=== PATIENT | male | born 1940 | race Caucasian/White ===

== ENCOUNTER 2016-06-09 22:36 | Observation (INO) | payer OTHER ==
[2016-06-09] MEDS ORDERED: NS 1,000 ML IV ONE (22:43)
--- NOTE | 2016-06-09 22:47 | EDPHY ---
H & P HPI/ROS: HPI CHIEF COMPLAINT: "I am feeling woozy, trouble with my right hand, trouble speech" HISTORY OF PRESENT ILLNESS: This patient very pleasant 68-year-old male, significant past medical history for hypertension, hyperlipidemia remote history of AFib not on any anticoagulation, presents emergency room by EMS after call 911 feeling woozy. Patient tells me that he sees as computer watching a you to video and noticed that he was unable to control his right hand very well was having trouble with the mouse. He then states that when he was trying to speak on the phone with 911 he had trouble getting his thoughts getting his words out. This happened approximately an hour ago it all resolved since then. Upon arrival here to the emergency room he has no complaints. Denies chest pain headache numbness or tingling focal weakness. Denies trouble with speech or trouble moving his right hand. The symptoms resolved on its own. Did take full-dose aspirin prior to arrival. No history of TA CVA or PR. Patient's NIH stroke scale time arrival to the emergency room is 0. Symptoms resolved prior to arrival. Past Medical History: Hypertension, hyperlipidemia, AFib, BPH, "saliva problems' Past Surgical History: No recent surgical history Social History: Denies daily use of drugs alcohol tobacco products lives independently alone in apartment. Family History: Noncontributory ROS REVIEW OF SYSTEMS: A comprehensive 10 point review of systems is otherwise negative aside from elements mentioned in the history of present illness. Exam Constitutional appears well nontoxic, triage nursing summary reviewed, vital signs reviewed, awake/alert. Eyes normal conjunctivae and sclera, EOMI, PERRLA. HENT normal inspection, atraumatic, moist mucus membranes, no epistaxis, neck supple/ no meningismus, no raccoon eyes. Respiratory clear to auscultation bilaterally, normal breath sounds, no respiratory distress, no wheezing. Cardiovascular rate normal, regular rhythm, no murmur, no edema, distal pulses normal. Gastrointestinal soft, non-tender, no rebound, no guarding, normal bowel sounds, no distension, no pulsatile mass. Genitourinary no CVA tenderness. Musculoskeletal no midline vertebral tenderness, full range of motion, no calf swelling, no tenderness of extremities, no meningismus, good pulses, neurovascularly intact. Skin pink, warm, & dry, no rash, skin atraumatic. Neurologic normal neurological exam. awake, alert and oriented x 3, AAOx3, moves all 4 extremities equally, motor intact, sensory intact, CN II-XII intact , normal cerebellar, normal vision, normal speech. Psychiatric normal mood/affect. Heme/Lymph/Immune no lymphadenopathy. Differential Diagnosis: Includes but is not limited to in a particular order TIA versus CVA hypertensive urgency, electrolyte disturbance, cardiac arrhythmia , ACS Medical Decision Making: plan for the patient CT head without contrast rule out acute bleed versus stroke. Check blood work including electrolytes, full classroom monitor. EKG troponin. Gentle IV hydration. Re-evaluation. Given patient's constellation of symptoms, age, risk factors patient be admitted to the hospital for TIA CVA rule out. Re-evaluation: EKG interpretation by me on record in [employer] system. Impression time of EKG 04/13/1945 sinus rhythm rate of 55, ID interval noted 220. 1st degree AV block. I do not appreciate acute ST elevation PR or ST depression. Normal T- waves. Normal intervals except for ID. Left axis deviation present. Unremarkable nonischemic EKG. CT scan of the head without IV contrast The results of the study are negative for bleed or stroke. The study was read by Dr. García. I viewed the images myself on the PACS system. Of note I was notified by Dr. García that patient's right sphenoid sinus is occluded, questionable sinus disease versus mass. Recommend direct look up his nose. ED x-ray chest one view: negative for acute cardiopulmonary disease. Image interpreted by myself. 2350: patient be admitted to the medicine service for TIA. Spoke with Dr. Zeng. Agrees to admit. Patient this time neurovascularly intact. No focal neuro deficit. At baseline. Source: Patient - Medical/Surgical History Hx Asthma: No Hx Chronic Respiratory Disease: No Hx Diabetes: No Hx Cardiac Disease: Yes Hx Renal Disease: No Hx Cirrhosis: No Hx Alcoholism: No Hx HIV/AIDS: No Hx Splenectomy or Spleen Trauma: No Other PMH: Medical HTN, high cholesterol, BPH, afib. surgery melanoma, ;l fibula fx - Social History Smoking Status: Never smoked Constitutional: Initial Vital Signs Temperature (C) 37.1 C 06/09/16 22:43 Heart Rate 61 06/09/16 22:43 Respiratory Rate 17 04/18/17 22:43 Blood Pressure 200/90 H 06/09/16 22:43 O2 Sat (%) 91 L 06/09/16 22:43 O2 Delivery Mode Room Air Allergies/Adverse Reactions: No Known Allergies Allergy (Verified 03/29/14 11:31) Home Medications: Medication Instructions Recorded ATENOLOL [Atenolol 50 mg] 100 mg PO DAILY 07/21/10 Aspirin [Aspirin 81mg] 325 mg PO DAILY 07/21/10 Carbidopa/Levo Cr 25/100Mg 0 tab PO BID 07/21/10 [Sinemet Cr] Ibuprofen [Motrin (*)] 600 mg PO Q6PRN PRN #20 tab 07/21/10 Losartan/Hydrochlorothiazide 1 each PO 07/21/10 [Losartan-Hctz 100-12.5 Mg Tab] Multivitamins W-Minerals/Lut 1 each PO 07/21/10 [Centrum Silver Tablet] Prilosec 07/21/10 SIMVASTATIN [Zocor] 40 mg PO 07/21/10 Tamsulosin HCl [Flomax] 0.4 mg PO DAILY8 07/21/10 traZODone [traZODONE 50MG (*)] 25 mg PO 07/21/10 Hydrochlorothiazide [HCTZ (RX)] 03/29/14 Zaleplon [Sonata] 5 mg PO DAILY PRN 03/29/14 Medical Decision Making - Diagnostics Imaging Results: Imaging Impressions Chest X-Ray 06/09/16 22:43 Impression: Suspect low-grade congestive heart failure without pulmonary edema. - Data Points Laboratory Results: Laboratory Results 06/09/16 22:52 06/09/16 22:52 06/09/16 06/09/16 06/09/16 22:52 22:52 22:52 WBC 6.74 10^3/uL 10^3/uL (3.80-9.50) RBC 4.34 10^6/uL L 10^6/uL (4.40-6.38) Hgb 14.7 g/dL g/dL (13.7-17.5) Hct 41.9 % % (40.0-51.0) MCV 96.5 fL fL (81.5-99.8) MCH 33.9 pg pg (27.9-34.1) MCHC 35.1 g/dL g/dL (32.4-36.7) RDW 13.1 % % (11.5-15.2) Plt Count 215 10^3/uL 10^3/uL (150-400) MPV 10.0 fL fL (8.7-11.7) Neut % (Auto) 54.3 % % (39.3-74.2) Lymph % (Auto) 29.2 % % (15.0-45.0) Stoddard % (Auto) 11.9 % % (4.5-13.0) Eos % (Auto) 3.6 % % (0.6-7.6) Baso % (Auto) 0.4 % % (0.3-1.7) Nucleat RBC Rel Count 0.0 % % (0.0-0.2) Absolute Neuts (auto) 3.66 10^3/uL 10^3/uL (1.70-6.50) Absolute Lymphs (auto) 1.97 10^3/uL 10^3/uL (1.00-3.00) Absolute Monos (auto) 0.80 10^3/uL 10^3/uL (0.30-0.80) Absolute Eos (auto) 0.24 10^3/uL 10^3/uL (0.03-0.40) Absolute Basos (auto) 0.03 10^3/uL 10^3/uL (0.02-0.10) Absolute Nucleated RBC 0.00 10^3/uL 10^3/uL (0-0.01) Immature Gran % 0.6 % % (0.0-1.1) Immature Gran # 0.04 10^3/uL 10^3/uL (0.00-0.10) PT 14.4 SEC SEC (12.0-15.0) INR 1.13 (0.83-1.16) APTT 27.4 SEC SEC (23.0-38.0) Sodium 137 mEq/L mEq/L (134-144) Potassium 3.4 mEq/L L mEq/L (3.5-5.2) Chloride 100 mEq/L mEq/L (97-110) Carbon Dioxide 25 mEq/l mEq/l (22-31) Anion Gap 12 mEq/L mEq/L (8-16) BUN 15 mg/dL mg/dL (7-23) Creatinine 1.2 mg/dL mg/dL (0.7-1.3) Estimated GFR 59 Glucose 125 mg/dL H mg/dL (70-100) Calcium 9.1 mg/dL mg/dL (8.5-10.4) Magnesium 1.9 mg/dL mg/dL (1.6-2.3) Total Bilirubin 0.6 mg/dL mg/dL (0.1-1.4) Conjugated Bilirubin 0.4 mg/dL mg/dL (0.0-0.5) Unconjugated Bilirubin 0.2 mg/dL mg/dL (0.0-1.1) AST 32 IU/L IU/L (17-59) ALT 34 IU/L IU/L (21-72) Alkaline Phosphatase 53 IU/L IU/L (38-126) Creatine Kinase 161 IU/L IU/L (0-224) CK-MB (CK-2) Fraction Pending Troponin I < 0.012 ng/mL ng/mL (0-0.034) NT-Pro-B Natriuret Pep 489 pg/mL H pg/mL (0-450) Total Protein 8.1 g/dL g/dL (6.3-8.2) Albumin 4.5 g/dL g/dL (3.5-5.0) Lipase 172.0 IU/L IU/L (23-300) Medications Given: Discontinued Medications Sodium Chloride (Ns) 1,000 mls @ 0 mls/hr IV ONCE ONE PRN Reason: Wide Open Stop: 06/09/16 22:44 Last Admin: 06/09/16 22:46 Dose: 1,000 mls Departure - Departure Disposition: [facility] Inpatient Acute Clinical Impression: TIA (transient ischemic attack) Qualifiers: Transient cerebral ischemia type: unspecified Qualified Code(s): G45.9 - Transient cerebral ischemic attack, unspecified Condition: Good Referrals: Patient,NotPresent [Unknown] - As per Instructions
--- NOTE | 2016-06-09 22:49 | CPEKG ---
Heart Rate: 55 RR Interval: 1091 P-R Interval: 220 QRSD Interval: 88 QT Interval: 420 QTC Interval: 402 P Peotone: 45 QRS Peotone: -30 T Wave Peotone: 73 EKG Severity - ABNORMAL ECG - EKG Impression: SINUS RHYTHM EKG Impression: FIRST DEGREE AV BLOCK EKG Impression: LEFT AXIS DEVIATION Electronically Signed By: Shelton Tuttle 10-Jun-2016 23:50:12
[2016-06-09 23:01] LABS: % IMMATURE GRANULYOCYTES 0.6 % (0.0-1.1); ABSOLUTE IMMATURE GRANULOCYTES 0.04 10^3/uL (0.00-0.10); ADD DIFF? NO; ADD MORPH? NO; ADD SCAN? NO; ATYPICAL LYMPHOCYTE FLAG 0 (0-99); FRAGMENT RBC FLAG 0 (0-99); HEMATOCRIT 41.9 % (40.0-51.0); HEMOGLOBIN 14.7 g/dL (13.7-17.5); LEFT SHIFT FLG 0 (0-99); LIPEMIA HEMOLYSIS FLAG 90 (0-99); MEAN CELL HEMOGLOBIN 33.9 pg (27.9-34.1); MEAN CELL HEMOGLOBIN CONCENTR. 35.1 g/dL (32.4-36.7); MEAN CELL VOLUME 96.5 fL (81.5-99.8); PLATELET CLUMPS FLAG 10 (0-99); PLATELET COUNT 215 10^3/uL (150-400); RED BLOOD CELL COUNT 4.34 10^6/uL (4.40-6.38); RED CELL DISTRIBUTION WIDTH 13.1 % (11.5-15.2)
[2016-06-09 23:11] LABS: INR 1.13 (0.83-1.16); PROTIME(PATIENT) 14.4 SEC (12.0-15.0)
[2016-06-09 23:12] LABS: APTT 27.4 SEC (23.0-38.0)
[2016-06-09 23:16] LABS: ALANINE AMINOTRANSFERASE 34 IU/L (21-72); ALBUMIN 4.5 g/dL (3.5-5.0); ALKALINE PHOSPHATASE 53 IU/L (38-126); ANION GAP 12 mEq/L (8-16); ASPARTATE AMINOTRANSFERASE 32 IU/L (17-59); BILIRUBIN,TOTAL 0.6 mg/dL (0.1-1.4); BILIRUBIN-CONJUGATED 0.4 mg/dL (0.0-0.5); BILIRUBIN-UNCONJUGATED 0.2 mg/dL (0.0-1.1); CALCIUM 9.1 mg/dL (8.5-10.4); CARBON DIOXIDE 25 mEq/l (22-31); CHLORIDE 100 mEq/L (97-110); CREATININE 1.2 mg/dL (0.7-1.3); GLOMERULAR FILTRATION RATE 59; GLUCOSE 125 mg/dL (70-100); MAGNESIUM 1.9 mg/dL (1.6-2.3); POTASSIUM 3.4 mEq/L (3.5-5.2); SODIUM 137 mEq/L (134-144); TOTAL PROTEIN 8.1 g/dL (6.3-8.2)
[2016-06-09 23:26] LABS: TROPONIN I < 0.012 ng/mL (0-0.034)
[2016-06-09 23:35] LABS: CREATINE KINASE-MB FRACTION 3.17 ng/mL (0-3.19)
[2016-06-10] MEDS ORDERED: PROTOCOL POTASSIUM 1 DOSE MISC PRN (01:31)
[2016-06-10] MEDS ORDERED: ACETAMINOPHEN 325 MG TAB PO PRN (01:35)
[2016-06-10] MEDS ORDERED: ONDANSETRON 4 MG/2 ML VIAL IVP PRN (01:35)
[2016-06-10 01:54] LABS: COLOR YELLOW; LEUKOCYTE ESTERASE,URINE NEGATIVE (NEGATIVE); NITRITE,URINE NEGATIVE (NEGATIVE)
--- NOTE | 2016-06-10 03:07 | GHP ---
[f rep st] HISTORY AND PHYSICAL DATE OF ADMISSION: 06/09/2016 CHIEF COMPLAINT: Transient right hand weakness and aphasia. HISTORY: The patient is a 76-year-old male who was at home watching [employer] video tonight when nalini denly, he realized he could not control his right hand. He called 9-1-1 but when the blow molding machine operator answe red, he was unable to speak and tell them his address. No words would come out and he was near comp letely aphasic. Eventually, this did improve and he was able to give them his address, and he came to the emergency room. The whole episode lasted 1 hour, and now he feels he is back to baseline. Husam waterman has otherwise been feeling well recently without any complaints. He has some very mild sinus josr estion. PAST MEDICAL HISTORY: 1. Hypertension. 2. Hyperlipidemia. 3. Melanoma on the right side of the face, status post surgical resection 4 years ago. 4. SVT. MEDICATIONS: Please see computer record for full detailed list. ALLERGIES: No known drug allergies. SOCIAL HISTORY: No smoking. Occasional wine. He lives alone. REVIEW OF SYSTEMS: Complete review of systems obtained. Review of systems is negative regarding co nstitutional, HEENT, GI, pulmonary, cardiovascular, , hematology, skin, muscular, endocrine, psych , except for positives and negatives as in HPI. FAMILY HISTORY: Reviewed and noncontributory to his main complaint. PHYSICAL EXAMINATION: GENERAL: Well-developed, well-nourished male, in no acute distress. VITAL S IGNS: Temperature is 36.7, pulse 68, blood pressure 179/77, saturating 92% on room air. EYE: Norm al conjunctivae, pupils equal, round, react to light. ENT: Normal ears, nose. Hearing intact. No rmal teeth. Oropharynx moist. NECK: Trachea midline. No thyromegaly. CHEST: Normal effort. KERRY NGS: Clear to auscultation bilaterally. CARDIOVASCULAR: Regular rate and rhythm. No murmur. No lower extremity edema. ABDOMEN: Soft, nontender. No hepatosplenomegaly. SKIN: Warm, dry, intact . No rash. MUSCULOSKELETAL: No cyanosis or clubbing. Strength 5/5, upper and lower extremities. NEURO: Cranial nerves intact. Normal sensation to light touch. PSYCH: Alert and oriented x3. N ormal affect. Normal judgment and insight. Normal memory. LABORATORY DATA: White count 6.74, hematocrit 41.9, platelets 215. Sodium 137, potassium 3.4, chlo ride 100, bicarb 25, BUN 15, creatinine 1.2, glucose 125. LFTs are negative. Troponins negative. EKG viewed by me, my personal interpretation is normal sinus rhythm, no ST-T wave changes. Chest x- ray is negative. Head CT is negative except for right maxillary sinus opacification. ASSESSMENT/PLAN: 1. Transient ischemic attack. We will check an MRI of his brain, a CT angiogram of the head and ne ck, and an echocardiogram. We will continue his daily aspirin and check a lipid panel. We will conchita ch him on telemetry for evidence of atrial fibrillation. We will consult Neurology to see him in th e morning. 2. Hypertension. Very elevated on presentation, although it is coming down. I do not think we nee d to follow strict permissive hypertension guidelines given the fact, clinically, this is a TIA. If he continues with extreme blood pressure elevation, we will treat it more urgently. Need to clarif y his home medication regimen. 3. Hyperlipidemia. We will recheck lipids in the morning and with this TIA event, his goal LDL is less than 70. 4. Right maxillary sinus opacification. By report, there was a question of a possible mass. This will be further evaluated on MRI of the brain. He may need outpatient ENT consultation. His sympto ms are minimal. CODE STATUS: Full. ADMISSION STATUS: We will admit to observation. Anticipate discharge tomorrow if workup is unremar kable. DVT PROPHYLAXIS: He is high risk. We will place him on subcu Lovenox. /[id number]/MODL
[2016-06-10 05:08] LABS: ANION GAP 10 mEq/L (8-16); CALCIUM 8.6 mg/dL (8.5-10.4); CARBON DIOXIDE 24 mEq/l (22-31); CHLORIDE 105 mEq/L (97-110); CHOLESTEROL 115 mg/dL (140-220); CHOLESTEROL/HDL RATIO 3.48 RATIO (1.00-4.97); GLOMERULAR FILTRATION RATE > 60; GLUCOSE 99 mg/dL (70-100); HIGH DENSITY LIPOPROTEIN 33 mg/dL (40-65); LDL/HDL RATIO 1.33 RATIO (1.00-3.64); LOW DENSITY LIPOPROTEIN 44 mg/dL (80-100); NON-HIGH DENSITY LIPOPROTEIN 82 mg/dL (90-129); POTASSIUM 4.1 mEq/L (3.5-5.2); SODIUM 139 mEq/L (134-144); TRIGLYCERIDE 193 mg/dL (40-150); VERY LOW DENSITY LIPOPROTEINS 38 mg/dL (8-25)
[2016-06-10 07:40] VITALS: TEMP 97.9
[2016-06-10] MEDS: ENOXAPARIN 40 MG/0.4 ML SYR SC SCH ×2 (08:14→10:09)
[2016-06-10] MEDS ORDERED: ASPIRIN EC 325 MG TAB PO SCH (09:00)
[2016-06-10] MEDS ORDERED: IOPAMIDOL (ISOVUE 370) 100 ML BTL IV ONE (09:23)
--- NOTE | 2016-06-10 10:35 | HOSPPROG ---
Hospitalist Progress Note Assessment/Plan: patient is a 76-year-old male who was watching a video when he suddenly realized he could not control his right hand. He called 911 but then was unable to speak in [place] address. He was completely aphasic. This improved [facility]. Today is my 1st encounter with patient. Chart reviewed. * Acute stroke reviewed his findings with the radiologist of the MRI this showed an acute lacunar infarct involving left occipital and left parietal cortex no hemorrhages noted CT angiogram of neck shows moderate calcified plaque to right carotid bulb 60-65% started on aspirin therapy/likely be started on Plavix patient has been declining tele monitoring today, but I reviewed earlier reports, sinus with infreq PVC's, no afib seen awaiting PT, OT, ST to see neurology needs to see * hypertension blood pressure was very elevated on admission will allow for permissive hypertension in the setting of a stroke * hyperlipidemia on statin * elevated triglycerides sees Dr Pedraza in OP setting/ needs further treatment * right maxillary sinus opacification MRI notes sinusitis will have him follow up with ENT in the outpatient setting *Plan: multiple disciplinarians need to see/ will discuss w Dr Hendrix about imaging studies/ need to further evaluate echocardiogram in addition Subjective: Antwan is anxious to leave today/wants to go home. Objective: Vital Signs Temp Pulse Resp BP Pulse Ox 36.6 C 60 14 175/82 H 98 06/10/16 07:39 06/10/16 07:39 06/10/16 07:39 06/10/16 07:39 06/10/16 07:39 Laboratory Results 06/10/16 04:45 06/09/16 06/10/16 06/11/16 05:59 05:59 05:59 Intake Total 1300 Output Total 300 Balance 1000 PT 14.4 SEC (12.0-15.0) 06/09/16 22:52 INR 1.13 (0.83-1.16) 06/09/16 22:52 - Physical Exam Constitutional: no apparent distress, appears nourished, not in pain Eyes: PERRL, EOMI Ears, Nose, Mouth, Throat: hearing normal Cardiovascular: regular rate and rhythym Respiratory: no respiratory distress Gastrointestinal: normoactive bowel sounds Skin: warm, normal color Neurologic: AAOx3, CN II-XII Intact, No weakness, No pronator drift, No facial droop Psychiatric: interacting appropriately, not anxious, other (impulsive) ICD10 Worksheet Patient Problems: Problems Problem Status Onset TIA (transient ischemic attack) Acute
[2016-06-10 12:02] VITALS: BP 173/102; PULSE 57; RESP 16; O2SAT 94
--- NOTE | 2016-06-10 13:11 | ECHO ---
[id number] + + [address] : : [place] [id number] : : [phone] + + Adult Echocardiographic Report + + :Name: MARY WILDER LStudy Date: 06/10/2016 08:07 AM : : Hospital Admission Number: [id number] Loc ation: 357: :: 1940 Gender: Male Height: 70 in : :Age: 76 yrs Race: WH Weight: 185 lb : :Reason For Study: Eval LV Fx : : BSA: 2.0 me ters2 : :History: TIA : + + MMode/2D Measurements \T\ Calculations IVSd: 0.97 cm LVIDd: 5.3 cm FS: 34.1 % Ao root diam: 3.6 cm LVPWd: 0.92 cm LVIDs: 3.5 cm EDV(Teich): 136.6 ml ACS: 1.7 cm ESV(Teich): 51.1 ml EF(Teich): 62.6 % LVOT diam: 2.1 cm LVOT area: 3.5 cm2 Normal Measurement Values: + + :LVIDd (3.5-5.7cm) IVSd (0.6-1.1cm) LVPWd (0.6-1.1cm) Aortic Root (2.0-3.7cm)Left Atrium (1.5-4.0cm): :LV Vol(d) (76-115ml) LV Vol(s) (29-48ml) Ejec Fraction (50-65%)PV Bobby (0.6- 1.2m/s) TV Bobby (0.4-1.0m/s) : :MV E Bobby (0.8-1.0m/s)MV A Bobby (0.3-1.0m/s)LVOT Bobby (0.7-1.2m/s) Asc Ao Bobby ( 0.9-1.8m/s) : + + Doppler Measurements \T\ Calculations MV E max bobby: Ao V2 max: AI max bobby: LV V1 max: 87.9 cm/sec 187.3 cm/sec 385.9 cm/sec 90.8 cm/sec MV A max bobby: Ao max PG: AI max P.6 mmHgLV V1 max P.9 cm/sec 14.0 mmHg AI dec slope: 3.3 mmHg MV E/A: 1.8 Ao mean PG: LV V1 mean P.4 mmHg 191.2 cm/sec2 1.8 mmHg Ao V2 mean: AI P1/2t: 591.1 msecLV V1 mean: 135.2 cm/sec 62.6 cm/sec Ao V2 VTI: 47.6 cm LV V1 VTI: 22.0 cm AVIS(I,D): 1.6 cm2 AVIS(V,D): 1.7 cm2 SV(LVOT): 76.3 ml PA V2 max: TR max bobby: 84.2 cm/sec 274.0 cm/sec PA max PG: TR max P.0 mmHg 2.8 mmHg RAP systole: 5.0 mmHg RVSP(TR): 35.0 mmHg Left Ventricle The left ventricle is normal in size. There is normal left ventricular wall thickness. The left ventricular ejection fraction is normal. There is Doppler evidence for diastolic dysfunction. Ejection Fraction = 63%. The left ventricular wall motion is normal. Some ectopy noted during exam. Right Ventricle The right ventricle is normal in size and function. Atria The left atrial size is normal. Right atrial size is normal. Mitral Valve The mitral valve leaflets appear thickened, but open well. There is no evidence of mitral valve prolapse. There is no mitral valve stenosis. There is trace mitral regurgitation. Tricuspid Valve There is mild tricuspid regurgitation. Right ventricular systolic pressure is normal. Aortic Valve There is mild aortic valve calcification. There is no aortic stenosis. Mild aortic regurgitation. Pulmonic Valve The pulmonic valve is normal in structure and function. There is no pulmonic valvular regurgitation. Great Vessels The aortic root is normal size. Pericardium/Pleural There is no pericardial effusion. Conclusion A complete two-dimensional transthoracic echocardiogram was performed (2D, M-mode, Doppler and color flow Doppler). The left ventricular ejection fraction is normal. There is Doppler evidence for diastolic dysfunction. Ejection Fraction = 63%. The left ventricular wall motion is normal. Some ectopy noted during exam. The mitral valve leaflets appear thickened, but open well. There is trace mitral regurgitation. There is mild tricuspid regurgitation. Right ventricular systolic pressure is normal. There is mild aortic valve calcification. Mild aortic regurgitation. There is no pericardial effusion. No valvular vegetations noted. Interatrial septum is intact on color flow doppler and 2D imaging. Consider repeat imaging with agitated saline contrast and/or possible SAMRA if there is a strong clinical suspicion for cardiac source for embolism. Final Reading Physician: Nadya Mckay signed on 06/10/2016 01:10 PM Ordering Physician: Apolonia Zeng Performed By: J Luis Kendall RDCS
--- NOTE | 2016-06-10 16:04 | GDS ---
[f rep st] DISCHARGE SUMMARY DISCHARGE DIAGNOSES: 1. Acute lacunar infarct/stroke. 2. Hypertension. 3. Hyperlipidemia. 4. Elevated triglycerides. 5. Right maxillary sinus opacification. CONSULTATIONS: Dr. Sterling Hendrix. BRIEF HISTORY: The patient is a very nice 76-year-old male who was watching a video when he suddenly realized he could not control his right hand and then became aphasic. He called 911. He was brought to [facility] for further evaluation. He had a head CT performed that showed an elderly brain with atrophy and probable white matter disease. It was negative for hemorrhage. He also had a right maxillary nasal ethmoid and middle right frontal sinus opacification with clinical correlation suggested. Subsequently, he had a brain MRI, which showed an acute lacunar infarct involving the left occipital and left parietal cortex without hemorrhage or mass effect. No acute hemorrhage was noted. In regard to his sinus, it showed severe right maxillary and ethmoid sinusitis with complete opacification. Echocardiogram was performed , which showed Doppler evidence for diastolic dysfunction. He had an EF of 63% . Left ventricular wall motion was normal. Interatrial septum was intact on color flow Doppler and 2D imaging. He had no valvular vegetations noted. Subsequently, he had a head and neck CTA performed. This showed he had mild-to- moderate calcified plaque in the right carotid bulb measuring 60% to 65%. He had mild calcified plaque at the left carotid bulb without significant stenosis. He has no evidence of flow in the right vertebral artery with some retrograde flow at the skull base from the left vertebral artery circulation. His symptoms completely resolved within an hour after they occurred. He was seen and evaluated by Dr. Hendrix today. The plan is for him to be placed on both aspirin and Plavix therapy. He will further follow up with Cardiology in the outpatient setting. HOSPITAL COURSE PER PROBLEM: 1. Acute stroke. He was seen and evaluated by PT and OT and Speech Therapy. He had been declining the court recording monitor. I reviewed his earlier reports. He has been in sinus rhythm. No atrial fibrillation was seen. 2. Hypertension. Blood pressure has been elevated, have allowed for permissive hypertension in the setting of a stroke. 3. Hyperlipidemia, on statin therapy. 4. Elevated triglycerides. Recommending that he get further treatment for this. 5. Right maxillary sinus opacification. He needs to follow up with an ENT in the outpatient setting. PENDING LABS AND TESTS: None. CONDITION AT DISCHARGE: Stable. Blood pressure is 173/102, heart rate is 57, respiratory rate 16, O2 sats on room air 94%, temperature is 36.6 Celsius. MEDICATIONS AT DISCHARGE: Please see the EMR. DISCHARGE INSTRUCTIONS: 1. Stop his Prilosec and take Protonix instead. Prilosec interacts with Plavix. 2. [facility] will follow up with him to get an appointment with Dr. Pedraza. 3. Holter monitor will be sent to his home. 4. Get further treatment for his triglycerides. 5. Get evaluation by ENT. /[id number]/MODL MTDD
--- NOTE | 2016-06-10 16:19 | GCON ---
[f rep st] CONSULTATION NEUROLOGY CONSULTATION REFERRING PHYSICIAN: Apolonia Zeng MD CHIEF COMPLAINT: Stroke. BILLING INFORMATION: 70 total minutes gasca time today, typically over 50 minutes in reviewing neuro imaging and cardiovascular testing, counseling the patient and coordination of care. HISTORY OF PRESENT ILLNESS: The patient is a very pleasant 76-year-old gentleman with a past medical history, including hypertension and dyslipidemia. There has also been a question of paroxysmal atrial fibrillation in the past. He is followed by Cardiology, Dr. Pedraza. He was working on the computer last night around 8 p.m. when he suddenly noticed his right hand could not move the mouse as quickly, and as much dexterity as he usually can. He became concerned about right hand discoordination and called 911, and was unable to express himself. He could think of the words he wanted to say, but he could not get them out normally or with great difficulty. He was able to understand the test engine operator perfectly. There were some comprehension problems. The motor deficit was isolated to his right hand. All of these symptoms lasted around 40 minutes and resolved. In summary, he had 40 minutes of expressive language dysfunction along with right hand discoordination which resolved spontaneously after 40 minutes. He came to the emergency department for evaluation. Initial head CT showed no acute findings. MRI brain after admission showed acute lacunar infarcts in the left occipital and left parietal cortex without hemorrhage or mass effect. There is also some mild atrophy and microvascular changes. CT angiography of the head and neck shows [id number] calcified plaque in the right carotid bulb at 65 %. Mild calcified plaque of the left carotid bulb without significant stenosis and noncalcified plaque at the origin of the left common carotid without significant stenosis. Echocardiogram showed an ejection fraction of 63%. Normal left atrial size. There were no valvular vegetations. No intracardiac thrombus and the interatrial septum was intact. The patient takes 325 mg daily aspirin and 2 or 3 days a week takes an extra baby aspirin of 81 mg. It happened yesterday that he did take 81 mg extra in the late afternoon. Therefore, he had taken a total of 406 mg of aspirin prior to his acute stroke occurring. REVIEW OF SYSTEMS: Unfortunately was done and only pertinent to the HPI. PAST MEDICAL HISTORY: Hypertension, hyperlipidemia, status post melanoma. MEDICATIONS: 325 mg daily of aspirin. See other medications in the HR allergies no known drug allergies. SOCIAL HISTORY: does not smoke. Lives alone. for many years. FAMILY HISTORY: His mother had a stroke at a late age. PHYSICAL EXAM: VITAL SIGNS: Blood pressure 165/67, temperature 36.6, respirations 14, heart rate 60. GENERAL: Higher mental functions, awake, alert. He names 5/5. Follows commands 5/5. Repeats 5/5. No aphasia. CRANIAL NERVES: Normal 2 through 7, 11, 12. Motor: He has 4/5 weakness of the right finger extensors, otherwise motor exam is normal with his strength tone and DTRs. Sensory: Normal to light touch in all 4 extremities. Coordination normal in upper and lower extremities. Gait was mildly antalgic but otherwise steady. IMPRESSION/PLAN: 1. Stroke. The patient has 2 small areas of diffusion weighted changes in his left occipital and parietal cortex. I suspect he had a larger area of ischemic cortex when he was symptomatic with endogenous lysis of the clot when he resolved clinically with residual small areas of infarct seen on the MRI brain. He will likely make a full recovery in terms of his very mild finger extensor weakness on exam. In fact, he was unaware of any deficit prior to me examining him. Therefore, the main objective of this evaluation is secondary prevention. This event occurred on 406 mg of aspirin on the day of the event prior to symptom onset. I have recommended he go on Plavix 75 mg daily in the morning and 81 mg of aspirin at night. We did discuss previous clinical trials showing that dual anti-platelet therapy is not proven to be efficacious versus monotherapy. However, I counseled the patient that each patient is treated individually and that in this case, based on the fact that he had a stroke on a fairly high dose of aspirin, he may warrant a more aggressive approach in terms of antithrombotic therapy. He understands the data I presented, the risks, benefits and alternatives, and is agreeable to the plan. He may have had a [id number] emboli from soft plaque in the left carotid system or from the aortic arch. He will initiate the anti-platelet therapy as above along with statin therapy that he is already on. Lastly, I have recommended a 30-day event monitor and follow up with Dr. Pedraza to screen for any paroxysmal atrial fibrillation as that would roll changer from antiplatelet to anticoagulation therapy. He is agreeable to the plan. He will have a 30-day event monitor and follow up with [facility]. No further recommendations now. He will likely discharge home later today. Thank you for this consultation. /[id number]/MODL FRED
[2016-06-10] MEDS ORDERED: TAMSULOSIN HCL 0.4 MG CAP PO SCH (17:00)
[2016-06-10] MEDS ORDERED: ATORVASTATIN CALCIUM 20 MG TAB PO SCH (17:00)
[2016-06-10] MEDS ORDERED: NON-FORMULARY NEW DRUG (Simvastatin [Zocor] 40 MG) PO SCH (17:00)
[2016-06-10] MEDS ORDERED: PILOCARPINE HCL 5 MG TAB PO SCH (17:00)
[2016-06-10] MEDS ORDERED: CARBIDOPA/LEVODOPA 10MG/100MG 1 TAB PO SCH (22:00)
[2016-06-11] MEDS ORDERED: NON-FORMULARY NEW DRUG (Omeprazole [Prilosec 20 Mg] 20 MG) PO SCH (05:00)
[2016-06-11] MEDS ORDERED: PANTOPRAZOLE SODIUM 40 MG TAB PO SCH (05:00)
== END 2016-06-10 15:06 | disposition home or self-care (01) ==
LOC: EDUNIT# → EDAGE → INTOOBSV 23:46 → F3N 06-10 00:14
PROVIDERS: ADMIT Internal Medicine; ATTEND Internal Medicine
DX: I63.9 Cerebral infarction, unspecified (principal); R47.01 Aphasia; I10 Essential (primary) hypertension; E78.5 Hyperlipidemia, unspecified; E78.1 Pure hyperglyceridemia; J34.89 Other specified disorders of nose and nasal sinuses; I48.91 Unspecified atrial fibrillation; Z85.820 Personal history of malignant melanoma of skin
CPT/HCPCS: 70450; 70496; 70498; 70551; 71010; 92523; 93005; 93306; 96360; 97161; 97165; 99285; G0378; G8978; G8979; G8980; G8987; G8988; G8989; G9162; G9163; G9164; J1650; Q9967

== ENCOUNTER → 2016-11-13 | Outpatient (CLI) | payer OTHER | LOC: FIMAGING 07:13 | PROVIDERS: ATTEND Internal Medicine | DX: R10.9 Unspecified abdominal pain (principal); I70.0 Atherosclerosis of aorta ==

== ENCOUNTER → 2017-05-05 | Outpatient (CLI) | payer OTHER | LOC: FIMAGING 07:33 | PROVIDERS: ATTEND Specialist | PROC: CP1Z1ZZ Planar Nuclear Medicine Imaging of Musculoskeletal System, All using Technetium 99m (Tc-99m) (ICD-10-PCS; principal; 2017-05-05) | DX: Z12.89 Encounter for screening for malignant neoplasm of other sites (principal); M19.012 Primary osteoarthritis, left shoulder; M19.011 Primary osteoarthritis, right shoulder; M18.11 Unilateral primary osteoarthritis of first carpometacarpal joint, right hand; C61 Malignant neoplasm of prostate | CPT/HCPCS: 78306; A9503 ==

== ENCOUNTER → 2017-05-13 | Outpatient (CLI) | payer OTHER ==
[~2017-05-13] MED LIST: IOPAMIDOL (ISOVUE-300) 100 ML BTL ONE
== END ==
LOC: FIMAGING 08:23
PROVIDERS: ATTEND Specialist
DX: C61 Malignant neoplasm of prostate (principal); K57.30 Diverticulosis of large intestine without perforation or abscess without bleeding; I70.0 Atherosclerosis of aorta; M46.96 Unspecified inflammatory spondylopathy, lumbar region; M46.97 Unspecified inflammatory spondylopathy, lumbosacral region
CPT/HCPCS: 74177; Q9967

== ENCOUNTER → 2017-07-16 | Outpatient (CLI) | payer OTHER ==
[~2017-07-16] MED LIST changes: +GADOBUTROL 10 ML VIAL IVP ONE; -IOPAMIDOL (ISOVUE-300) 100 ML BTL ONE
== END ==
LOC: FIMAGING 15:04
PROVIDERS: ATTEND Radiology Radiation Oncology
DX: C61 Malignant neoplasm of prostate (principal)
CPT/HCPCS: 72197; 76377; A9585